=== PATIENT | male | born 1980 | race Caucasian/White ===

== ENCOUNTER → 2019-02-14 08:35 | Outpatient (CLI) | payer MEDICAID | END | disposition home or self-care (01) | LOC: D.RAD 08:35 | PROVIDERS: ATTEND Nurse Practitioner Family | DX: S43.431A Superior glenoid labrum lesion of right shoulder, initial encounter (principal) ==

== ENCOUNTER 2019-02-25 08:17 | Day surgery (SDC) | payer MEDICAID ==
[~2019-02-25] VITALS: Ht 172.7 cm; Wt 79.4 kg
[~2019-02-25 08:17] MED LIST: DICLOFENAC SODI50 MG PO; NEURONTIN 300300 MG; PROZAC20 MG PO
[2019-02-25 09:37] VITALS: BP 115/60; Ht 172.7 cm; Wt 79.4 kg
[2019-02-25] MEDS ORDERED: PERCOCET 10-321 EAC1 PO (13:17)
[2019-02-25] MEDS ORDERED: VISTARIL50 MG PO (13:17)
--- NOTE | 2019-02-25 14:41 | OP ---
PATIENT NAME: ANTOINETTE WATTS MEDICAL RECORD: [id number] :82 LOCATION:[facility] ADMISSION DATE: SURGEON: MIHAELA GABRIEL DO DATE OF OPERATION: 02/25/2019 PROCEDURE PERFORMED: Right shoulder arthroscopy with subacromial decompression, distal clavicle excision, biceps tenodesis, and labral debridement. PREOPERATIVE DIAGNOSES: Right shoulder pain, AC joint arthritis, subacromial impingement, and SLAP tear. POSTOPERATIVE DIAGNOSES: Right shoulder pain, AC joint arthritis, subacromial impingement, and SLAP tear with a Heber complex. INDICATIONS: Mr. Watts is a 38-year-old male who presented to my office. He had had right shoulder pain for some time. He had injections and some physical therapy at home and he had shoulder pain continuing. He get an MRI and MR arthrogram, which demonstrated a large SLAP tear, subacromial impingement as well as AC joint arthritis. I informed him that we could do the biceps tenodesis, look at his rotator cuff and then clean up the subacromial space and do a distal clavicle excision and an acromioplasty. He was okay with that. He was aware of the risks including infection, bleeding, damage to nerves and vessels, need for further surgery, continued pain, and he signed the consent. SURGEON: Mihaela Gabriel DO DESCRIPTION OF PROCEDURE: The patient received a block per anesthesia in the preoperative area and he was taken to the operative suite, laid in a left lateral decubitus position with the right arm up and the right arm was then prepped and draped after he was sedated and an LMA was placed. Once he was prepped and draped, a timeout was performed, everyone was in agreement as to the correct side, site, patient and procedure. The procedure then began inflating the joint with 60 cc of normal saline through the posterior portal and an 18-gauge spinal needle. Posterior portal was then established with an 11-blade scalpel and trocar was entered into the shoulder joint. Once it was entered into the shoulder joint, it was visualized and the anterior portal was established with an 18-gauge spinal needle and 11-blade scalpel. The probe was then brought in and a large SLAP tear was seen as well as the Heber complex. The burner was brought in and a biceps tenotomy was done and labral debridement. The rotator cuff was inspected. No tears were seen in the articular side of the rotator cuff, subscapularis, infraspinatus and supraspinatus. The joint looked good. No loose bodies were seen in the inferior gutter. We then switched to the subacromial space. Lateral portal was established with an 18-gauge spinal needle and 11-blade scalpel. Burner was brought in. A subacromial decompression was done with that and the shaver. Acromioplasty was done as well as a distal clavicle excision. Rotator cuff was then inspected on the bursal side and no tears were seen in it. Once that was completed, an incision was made on the anterior humerus. Dissection was made down to the long head of the biceps tendon. This was pulled out through the incision, it was whipstitched, and a button was placed on it and then a unicortical hole was placed in the humerus. The button was placed in it and the tendon was cinched down to it, tied and then a free needle was used to tie it back through the tendon and this was tied down. Excess tendon suture was then cut and the site was irrigated thoroughly with normal saline and closed with 2-0 Vicryl in inverted interrupted fashion and 4-0 Monocryl ran on the skin. All the portal OPERATIVE REPORT [id number] ANTOINETTE WATTS sites were then closed with 4-0 Monocryl in inverted interrupted fashion. Dermabond was placed on and Telfa and Tegaderm were placed on all those. He was awakened and taken to recovery in stable condition. BLOOD LOSS: Minimal. COMPLICATIONS: None. TRANSINT:[id number] Voice Confirmation ID: [id number] DOCUMENT ID: [id number] MIHAELA GABRIEL DO at 1441 CC: [id number] DICTATION DATE: 02/25/19 131 BROADCAST SUPERVISOR: 02/25/19 1426 [facility] [address] [id number]
--- NOTE | 2019-02-25 14:55 | NUR ---
PATIENT AMBULATING AROUND ROOM WITHOUT UNSTEADINESS OR DIZZINESS, WITH ARM SLING IN PLACE TO RIGHT ARM. LEFT ARM PIV DC'D WITH TIP INTACT. PATIENT DRESSING IN PERSONAL CLOTHING. DISCHARGE INSTRUCTIONS REVIEWED WITH PATIENT AND SPOUSE. DISCHARGED HOME VIA WHEELCHAIR TO PRIVATE VEHICLE
== END 2019-02-25 14:55 | disposition home or self-care (01) ==
LOC: D.OPS 08:17 → D.PAN 12:00 → D.OPS 14:55
PROVIDERS: ATTEND Orthopaedic Surgery
DX: M13.811 Other specified arthritis, right shoulder (principal); M75.41 Impingement syndrome of right shoulder; S43.431A Superior glenoid labrum lesion of right shoulder, initial encounter; X58.XXXA Exposure to other specified factors, initial encounter; Z01.812 Encounter for preprocedural laboratory examination